=== PATIENT | female | born 1995 | race Caucasian/White ===

== ENCOUNTER 2018-05-02 20:58 | Outpatient (CLI) | payer OTHER ==
[2018-05-02 21:51] LABS: ADD UMIC YES; UR ASCORBIC ACID NEGATIVE (NEGATIVE); UR BILIRUBIN (Dip) NEGATIVE (NEGATIVE); UR BLOOD (Dip) NEGATIVE (NEGATIVE); UR CLARITY CLEAR (CLEAR); UR COLOR YELLOW (YELLOW); UR GLUCOSE (Dip) NEGATIVE (NEGATIVE); UR KETONES (Dip) NEGATIVE (NEGATIVE); UR LEUKOCYTE ESTERASE (Dip) NEGATIVE Leu/ul (NEGATIVE); UR MUCUS FEW /HPF (NONE SEEN); UR NITRITE (Dip) NEGATIVE (NEGATIVE); UR RBC 0 /HPF (0-5); UR SPECIFIC GRAVITY (Dip) 1.026 (1.003-1.030); UR TOTAL PROTEIN (Dip) 1+ mg/dl (NEGATIVE); UR UROBILINOGEN (Dip) NEGATIVE (NEGATIVE); UR WBC 1 /HPF (0-5)
[2018-05-02] MEDS: ACETAMINOPHEN 500 MG TAB PO (23:24)
[2018-05-02] MEDS: TERBUTALINE 1 MG/ML INJ SC (23:25)
== END 2018-05-03 01:25 | disposition home or self-care (01) ==
LOC: OBT 20:58 → L-D 21:00
DX: O26.893 Other specified pregnancy related conditions, third trimester (principal); Z3A.31 31 weeks gestation of pregnancy; R10.2 Pelvic and perineal pain
CPT/HCPCS: 76815; 76817; 76818; 81001; 96372

== ENCOUNTER 2018-06-18 19:46 | Outpatient (CLI) | payer OTHER ==
[2018-06-18 22:08] LABS: ADD UMIC YES; UR ASCORBIC ACID NEGATIVE (NEGATIVE); UR BILIRUBIN (Dip) NEGATIVE (NEGATIVE); UR BLOOD (Dip) NEGATIVE (NEGATIVE); UR CLARITY CLEAR (CLEAR); UR COLOR YELLOW (YELLOW); UR GLUCOSE (Dip) NEGATIVE (NEGATIVE); UR KETONES (Dip) TRACE mg/dL (NEGATIVE); UR LEUKOCYTE ESTERASE (Dip) TRACE Leu/ul (NEGATIVE); UR MUCUS MODERATE /HPF (NONE SEEN); UR NITRITE (Dip) NEGATIVE (NEGATIVE); UR RBC 1 /HPF (0-5); UR SPECIFIC GRAVITY (Dip) 1.032 (1.003-1.030); UR SQUAMOUS EPITHELIAL CELL FEW /HPF (FEW); UR TOTAL PROTEIN (Dip) NEGATIVE (NEGATIVE); UR UROBILINOGEN (Dip) 1+ mg/dL (NEGATIVE); UR WBC 3 /HPF (0-5)
== END 2018-06-18 23:01 | disposition home or self-care (01) ==
LOC: OBT 19:46 → L-D 19:46 → OBT 23:01
DX: O26.893 Other specified pregnancy related conditions, third trimester (principal); R30.0 Dysuria; R10.2 Pelvic and perineal pain; Z3A.39 39 weeks gestation of pregnancy
CPT/HCPCS: 76818; 81001; 87086

== ENCOUNTER 2018-06-28 12:24 | Inpatient (IN) | payer OTHER ==
[2018-06-28 14:26] LABS: RUPTURE FETAL MEMBRANES NEGATIVE (NEGATIVE)
[2018-06-28] MEDS ORDERED: METHYLERGONOVINE 0.2 MG INJ IM (16:30)
[2018-06-28] MEDS ORDERED: CARBOPROST 250 MCG INJ IM (16:30)
[2018-06-28] MEDS ORDERED: MISOPROSTOL 200 MCG TAB PR (16:30)
[2018-06-28] MEDS ORDERED: OXYTOCIN 30 UNITS/LR 500 ML IV ×2 (16:30)
[2018-06-28] MEDS ORDERED: LIDOCAINE 1% (MPF) 30 ML INJ INJ (16:30)
[2018-06-28] MEDS ORDERED: BUTORPHANOL 2 MG INJ IV (16:30)
[2018-06-28 17:12] LABS: ADD MAN DIFF? NO
[2018-06-28 17:16] LABS: BASOPHILS % 0.4 % (0.0-2.0); EOSINOPHILS # 0.1 10^3/ul (0.0-0.5); EOSINOPHILS % 1.3 % (0.0-7.0); HEMATOCRIT 37.2 % (37.0-47.0); HEMOGLOBIN 12.6 g/dl (12.0-16.0); LYMPHOCYTES % 20.3 % (15.0-51.0); MEAN CORPUSCULAR HEMOGLOBIN 30.1 pg (29.0-33.0); MEAN CORPUSCULAR HGB CONC 33.9 g/dl (32.0-37.0); MONOCYTE # 0.6 10^3/ul (0.3-0.9); MONOCYTES % 5.6 % (0.0-11.0); NEUTROPHIL # 7.2 10^3/ul (1.6-7.5); NEUTROPHILS % 71.9 % (39.0-77.0); PLATELET COUNT 154 10^3/UL (140-415); RED BLOOD COUNT 4.18 10^6/ul (4.20-5.40); RED CELL DISTRIBUTION WIDTH 13.2 % (11.5-14.5)
[2018-06-28 17:42] LABS: INR 0.89; PROTIME 12.1 Sec (11.9-14.9); PT RATIO 0.9
[2018-06-28 17:43] LABS: PARTIAL THROMBOPLASTIN TIME 26.5 Sec (23.0-35.0)
[2018-06-28 18:03] LABS: HEPATITIS B SURFACE ANTIGEN NEGATIVE (NEGATIVE)
[2018-06-28] MEDS: LACTATED RINGER'S 1,000 ML IV (19:47)
[2018-06-28] MEDS: OXYTOCIN 30 UNITS/LR 500 ML IV (21:04)
[2018-06-29] MEDS: LACTATED RINGER'S 1,000 ML IV ×3 (00:01→11:13)
[2018-06-29] MEDS ORDERED: FENTAnyl 2MCG/ML-ROPIV 0.2% 100 ML (03:28)
[2018-06-29] MEDS ORDERED: ONDANSETRON 4 MG INJ IV ×2 (03:30→13:00)
[2018-06-29] MEDS ORDERED: DIPHENHYDRAMINE 50 MG INJ IV ×2 (03:30→13:00)
[2018-06-29] MEDS ORDERED: NALOXONE (0.4 MG/ML) INJ IV (03:30)
[2018-06-29] MEDS: FENTAnyl 2MCG/ML-ROPIV 0.2% 100 ML BAG EPI (10:45)
[2018-06-29] MEDS: OXYTOCIN 30 UNITS/LR 500 ML IV (12:00)
[2018-06-29] MEDS ORDERED: LACTATED RINGER'S 1,000 ML IV* (12:59)
[2018-06-29] MEDS ORDERED: DIBUCAINE 1% 30 GM OINT TOP (13:00)
[2018-06-29] MEDS ORDERED: DIPHENHYDRAMINE 25 MG CAP PO (13:00)
[2018-06-29] MEDS ORDERED: WITCH HAZEL/GLYCERIN PAD PR (13:00)
[2018-06-29] MEDS ORDERED: HYDROCODONE/APAP (5/325) TAB PO ×2 (13:00)
[2018-06-29] MEDS ORDERED: SENNA/DOCUSATE NA (8.6MG/50MG) TAB PO (13:00)
[2018-06-29] MEDS ORDERED: MISOPROSTOL 200 MCG TAB PR (13:00)
[2018-06-29] MEDS ORDERED: MAGNESIUM HYDROXIDE 30ML CUP PO (13:00)
[2018-06-29] MEDS ORDERED: BENZOCAINE 20% 56 ML SPRAY TOP (13:00)
[2018-06-29] MEDS ORDERED: CARBOPROST 250 MCG INJ IM (13:00)
[2018-06-29] MEDS ORDERED: OXYTOCIN 30 UNITS/LR 500 ML IV (13:00)
[2018-06-29] MEDS ORDERED: ONDANSETRON 4 MG TAB PO (13:00)
[2018-06-29] MEDS ORDERED: NA PHOSPHATE/BIPHOS 133 ML ENEMA PR (13:00)
[2018-06-29 15:01] LABS: RAPID PLASMA REAGIN NONREACTIVE (NR)
[2018-06-29 15:14] LABS: AMPHETAMINE/METHAMPHETAMINE Negative (NEGATIVE); BARBITURATES Negative (NEGATIVE); BENZODIAZEPINES Negative (NEGATIVE); CANNABINOIDS Negative (NEGATIVE); COCAINE Negative (NEGATIVE); OPIATES Negative (NEGATIVE)
[2018-06-29] MEDS: IBUPROFEN 600 MG TAB PO ×2 (17:32→23:37)
[2018-06-29] MEDS: LANOLIN HPA 1 PKT TOP (17:32)
[2018-06-29] MEDS: SENNA/DOCUSATE NA (8.6MG/50MG) TAB PO (22:08)
[2018-06-30] MEDS: IBUPROFEN 600 MG TAB PO ×3 (05:58→17:23)
[2018-06-30 08:01] LABS: ADD MAN DIFF? NO
[2018-06-30 08:06] LABS: BASOPHILS % 0.3 % (0.0-2.0); EOSINOPHILS # 0.2 10^3/ul (0.0-0.5); EOSINOPHILS % 2.1 % (0.0-7.0); HEMATOCRIT 33.3 % (37.0-47.0); HEMOGLOBIN 11.1 g/dl (12.0-16.0); LYMPHOCYTES # 2.7 10^3/ul (0.8-2.9); LYMPHOCYTES % 24.8 % (15.0-51.0); MEAN CORPUSCULAR HEMOGLOBIN 30.2 pg (29.0-33.0); MEAN CORPUSCULAR HGB CONC 33.3 g/dl (32.0-37.0); MEAN CORPUSCULAR VOLUME 90.5 fl (82.0-101.0); MEAN PLATELET VOLUME 12.8 fl (7.4-10.4); MONOCYTE # 0.7 10^3/ul (0.3-0.9); MONOCYTES % 6.6 % (0.0-11.0); NEUTROPHIL # 7.1 10^3/ul (1.6-7.5); NEUTROPHILS % 65.6 % (39.0-77.0); PLATELET COUNT 137 10^3/UL (140-415); RED BLOOD COUNT 3.68 10^6/ul (4.20-5.40); RED CELL DISTRIBUTION WIDTH 13.2 % (11.5-14.5)
[2018-06-30 08:06] LABS: WHITE BLOOD COUNT 10.8 10^3/ul (4.8-10.8)
[2018-06-30] MEDS: SENNA/DOCUSATE NA (8.6MG/50MG) TAB PO ×2 (08:43→21:36)
[2018-07-01] MEDS: IBUPROFEN 600 MG TAB PO ×4 (00:07→17:16)
[2018-07-01] MEDS: VARICELLA VACCINE LIVE/PF 1,350 UNIT/0.5 ML ML SC* (09:00)
[2018-07-01] MEDS: MEASLES,MUMPS,RUBELLA VACCINE INJ SC* (09:00)
[2018-07-01] MEDS: DIPHTH/TET/ACEL PERTUSS (ADULT) 0.5 ML VIAL IM* (09:00)
[2018-07-01] MEDS: SENNA/DOCUSATE NA (8.6MG/50MG) TAB PO (12:00)
== END 2018-07-01 18:15 | disposition home or self-care (01) | DRG 807 ==
LOC: OBT 12:24 → PP1 06-29 13:44 → L-D 12:24 → OBT 15:02 → L-D 15:02
PROVIDERS: Specialist
PROC: 10E0XZZ Delivery of Products of Conception, External Approach (ICD-10-PCS; principal; 2018-06-29)
PROC: 10907ZC Drainage of Amniotic Fluid, Therapeutic from Products of Conception, Via Natural or Artificial Opening (ICD-10-PCS; 2018-06-29)
DX: O99.214 Obesity complicating childbirth (principal); Z37.0 Single live birth; E66.9 Obesity, unspecified; J45.909 Unspecified asthma, uncomplicated; Z3A.40 40 weeks gestation of pregnancy
CPT/HCPCS: 62319; 76815; 80307; 84112; 85025; 85610; 85730; 86592; 86850; 86900; 86901; 87340; 90716